=== PATIENT | female | born 1985 | race Caucasian/White ===

== ENCOUNTER 2020-09-10 12:18 | Emergency (ER) | payer OTHER ==
[~2020-09-10] VITALS: Ht 172.7 cm; Wt 77.1 kg
[2020-09-10 12:18] VITALS: BP 182/105
[2020-09-10] MEDS ORDERED: ZESTRIL ONE (12:32)
[2020-09-10] MEDS ORDERED: ZESTRIL PO STA (12:33)
--- NOTE | 2020-09-10 13:07 | DIREP ---
PROCEDURE:CT HEAD OR BRAIN W/O CONTRAST COMPARISON:None. INDICATIONS:PAIN TECHNIQUE:CT images were created without intravenous contrast. FINDINGS: VENTRICLES:The ventricles are normal in size and configuration. CEREBRUM:Normal cerebral morphology with appropriate cordero white matter differentiation. CEREBELLUM:Negative. BRAINSTEM:Negative. BASAL CISTERNS:Negative. HEMORRHAGE:No MASS LESION:No ACUTE INFARCT:No SKULL:Normal. SINUSES:Normal. OTHER:None CONCLUSION:No acute intracranial process. Dictated by: Cassius Parham M.D. on 09/10/2020 at 01:04 PM
[2020-09-10 13:45] VITALS: BP 148/92
--- NOTE | 2020-09-10 13:46 | ER.PDOC ---
General Chief Complaint: Requesting Medical Care Stated Complaint: HEADACHE TRAVEL OUT OF US: No Time seen by MD: 12:20 Source: patient, EMS Exam Limitations: no limitations History of Present Illness Initial Comments This 35-year-old female was brought in via EMS with concern for a possible stroke. This patient has a history of migraines that affect the left side of her head. Today she has a headache that started out just as a minor headache involving the left side of her head. Then she started getting this numbness and tingly type sensation to her the left side of her body followed by of her headache becoming much more severe and more consistent like her typical migraine. Because of left-sided numbness in her body and face, she parked her truck/semi and called the paramedics. Paramedics indicated that [place] stroke scale was negative and they picked her up they started a line on her and brought her in. She was hypertensive for them and is continued to be hypertensive for us. She complains now that her headache is her typical migraine-like headache. She is hypertensive and states that she is treated with lisinopril 20 mg tablets. We will give her one here now. Because this was not heard completely typical migraine, but I will CT her head to make sure nothing else is going on. Timing/Duration: 1-3 hours Severity: severe Associated Symptoms: other (The noted numbness and tingling as dictated above.) Past Medical History Medical History: cancer, hypertension, other Surgical History: cancer surgery, hysterectomy Social History Smoking: non-smoker Alcohol Use: rarely Drug Use: none Review of Systems Psychiatric/Neurological: see HPI, headache All Other Systems: Reviewed and Negative Physical Exam General Appearance: No Apparent Distress, WD/WN EENT: eyes nml inspection, nml ENT inspection Neck: Non-Tender, Full Range of Motion, Supple, Normal Inspection Respiratory: chest non-tender, lungs clear, normal breath sounds, no respiratory distress, no accessory muscle use CVS: reg rate & rhythm, no murmur, no gallop, pulses nml, nml capillary refill Gastrointestinal: Normal Bowel Sounds, No Organomegaly, No Pulsatile Mass, Non Tender Extremities: Normal Range of Motion, Non-Tender, Normal Inspection, No Pedal Edema, No Calf Tenderness, Normal Capillary Refill 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, No Motor/Sensory Deficits, Alert, Normal Mood/Affect, Oriented x 3 Skin: Normal Color Lymphatic: No Adenopathy Results/Orders Results/Orders Orders - JENNIFER FOX MD Lisinopril (Zestril) (09/10/20 12:33) Ct Head Wo Contrast (09/10/20 12:51) Vital Signs Date Time Temp Pulse Resp B/P (MAP) Pulse Ox O2 Delivery O2 Flow Rate FiO2 09/10/20 12:35 160/107 09/10/20 12:18 98.1 85 16 182/105 (130) 98 Room Air 09/10/20 12:18 98.1 85 16 98 09/10/20 12:18 98.1 85 16 Administered Medications Medications (Trade) Dose Ordered Sig/[place] Route PRN Reason Start Time Stop Time Status Last Admin Dose Admin Lisinopril (Zestril) 20 mg STAT STAT PO 09/10/20 12:33 09/10/20 12:35 DC 09/10/20 12:35 20 MG Progress Progress head ct negative ER DEPART Departure Time of Disposition: 13:54 Disposition: 01 HOME, SELF-CARE Impression: Primary Impression: Migraine headache Additional Impression: Hypertension Condition: Stable Referrals: PCP,UNKNOWN (PCP) PRIMARY CARE PROVIDER Comments Toradol 10mg, one po qid prn PRICE, #20 tabs Lisinopril 20mg, one po qd, #30 Duration or Time Spent with Pa: 15m Problem Qualifiers JENNIFER FOX MD Sep 10, 2020 13:46
[2020-09-10] MEDS ORDERED: TORADOL IV STA (13:59)
[2020-09-10] MEDS ORDERED: TORADOL ONE (14:01)
== END 2020-09-10 14:15 | disposition home or self-care (01) ==
LOC: ER 12:18
DX: G43.909 Migraine, unspecified, not intractable, without status migrainosus (principal); I10 Essential (primary) hypertension; Z79.899 Other long term (current) drug therapy; Z90.710 Acquired absence of both cervix and uterus
CPT/HCPCS: 70450; 96374; 99284; J1885